=== PATIENT | male | born 1965 | race Caucasian/White ===

== ENCOUNTER → 2020-05-28 | Outpatient (CLI) | payer OTHER ==
[~2020-05-28] MED LIST: CATHETER FLUSH 10 ML SYR IV PRN; HOLD METFORMIN - RECEIVED CONTRAST 20 ML VIAL IV SCH; IOHEXOL 350 MG/ML 100 ML (OMNIPAQUE 350) VIAL IV ONE; NS 100 ML (IVPB) BAG IV ONE
[2020-05-28 08:41] LABS: ALKALINE PHOSPHATASE 72 U/L (40-136); BILIRUBIN,TOTAL 2.2 MG/DL (0.1-1.0); BUN/CREATININE RATIO 18; CALCIUM 9.6 MG/DL (8.5-10.1); CARBON DIOXIDE 24 MMOL/L (21-32); CHLORIDE 100 MMOL/L (98-107); GFR ESTIMATED > 60; GLUCOSE 123 MG/DL (70-105); POTASSIUM 4.2 MMOL/L (3.6-5.0); SODIUM 136 MMOL/L (135-145)
[2020-05-28 08:42] LABS: ALANINE AMINOTRANSFERASE 11 U/L (0-55); ALBUMIN 4.2 GM/DL (3.2-4.5); TOTAL PROTEIN 7.8 GM/DL (6.4-8.2)
--- NOTE | 2020-05-28 09:36 | Diagnostic Imaging Report ---
PROCEDURE: CT abdomen and pelvis with contrast, rule out appendicitis. TECHNIQUE: Multiple contiguous axial images were obtained through the abdomen and pelvis after the administration of intravenous contrast. All CT scans use one or more of the following dose optimizing techniques: automated exposure control, MA and/or KvP adjustment based on patient size and exam type or iterative reconstruction. INDICATION: Lower abdominal pain. There is no previous study available at this time for comparison. FINDINGS: There is mild low-density in the liver indicating hepatic steatosis. Subcentimeter lucencies are seen in the dome of the left lobe and inferior tip of the right hepatic lobe. These are too small to fully characterize but may represent cysts. There is no evidence of gallbladder, pancreatic, splenic or adrenal gland abnormality. There is also approximately 1 cm cyst in the anterior right kidney. There is moderate edema and inflammation surrounding segment of thickened sigmoid colon. There is also significant amount of gas present within the pericolonic fat at the level of the sigmoid mural thickening. No definite organized fluid collections identified. Unopacified bladder is unremarkable. There is diffuse enlargement of seminal vesicles, bilaterally. IMPRESSION: Findings are compatible with sigmoid colitis. This could be on the basis of diverticulitis. There is apparent perforation with gas surrounding the sigmoid colon. No obvious organized fluid collection is seen to indicate abscess at this time. Follow-up study is recommended to exclude other underlying colonic lesion such as perforated neoplasm. Dictated by: Dictated on workstation # [id number]
== END ==
LOC: RAD FS 08:08
PROVIDERS: ATTEND Nurse Practitioner Family
DX: R10.30 Lower abdominal pain, unspecified (principal)
CPT/HCPCS: 36415; 74177; 80053

== ENCOUNTER → 2021-10-08 | Outpatient (CLI) | payer OTHER ==
--- NOTE | 2021-10-08 13:23 | Diagnostic Imaging Report ---
PROCEDURE: CT urinary tract, rule out kidney stone. TECHNIQUE: Multiple contiguous axial images were obtained through the abdomen and pelvis without the use of intravenous contrast. Auto Exposure Controls were utilized during the CT exam to meet ALARA standards for radiation dose reduction. INDICATION: Left abdominal pain. COMPARISON: 05/28/2020. Unenhanced images of liver and spleen reveal probable 1 cm cyst in the dome of the left hepatic lobe. Otherwise no focal abnormality seen. There is no evidence of pancreatic, adrenal gland or renal abnormality. There is no evidence of hydronephrosis or urinary tract calculus. No free fluid is seen within the abdomen or pelvis. There is inflammation and/or scarring surrounding the upper sigmoid colon which is to the right of midline in the lower abdomen. The adjacent gas collection has resolved. There is no evidence of drainable fluid collection. Unopacified bladder is unremarkable. IMPRESSION: Inflammation and/or scarring is again seen involving the sigmoid colon. This may represent residual or recurrent abnormality. No adjacent fluid collection or gas leak is seen to indicate perforation. There is no evidence of urinary tract calculus or obstruction. Dictated by: Dictated on workstation # [id number]
== END ==
LOC: RAD FS 12:49
PROVIDERS: ATTEND Family Medicine
DX: R10.32 Left lower quadrant pain (principal)
CPT/HCPCS: 74176